=== PATIENT | female | born 1985 | race American Indian/Alaskan Native ===

== ENCOUNTER 2017-09-04 23:49 | Emergency (ER) | payer MEDICAID ==
[2017-09-05 00:48] VITALS: BP 145/74
[2017-09-05 01:28] LABS: Basophils % (Auto) 0.4 % (0.0-1.8); Eosinophils # (Auto) 0.5 K/mm3 (0.0-0.4); Eosinophils % (Auto) 3.9 % (0.0-4.3); Hematocrit 35.8 % (30.3-42.9); Hemoglobin 11.9 gm/dl (10.1-14.3); Lymphocytes # (Auto) 1.8 K/mm3 (1.2-5.4); Lymphocytes % (Auto) 13.2 % (13.4-35.0); Mean Corpuscular HGB Conc 33 % (30-34); Mean Corpuscular Hemoglobin 30 pg (28-32); Mean Corpuscular Volume 90 fl (79-97); Monocytes # (Auto) 1.1 K/mm3 (0.0-0.8); Monocytes % (Auto) 8.3 % (0.0-7.3); Platelet Count 232 K/mm3 (140-440); Red Blood Count 3.97 M/mm3 (3.65-5.03); Red Cell Distribution Width 14.9 % (13.2-15.2)
[2017-09-05 02:02] LABS: BUN/Creatinine Ratio 26; Blood Urea Nitrogen 18 mg/dL (7-17); Calcium 9.3 mg/dL (8.4-10.2); Hemolysis Index 21
--- NOTE | 2017-09-05 02:51 | Emergency Department Report ---
ED ENT HPI - General Chief complaint: Sore Throat Stated complaint: VOMITING,SORE THROAT Time Seen by Provider: 09/05/17 02:24 Source: patient Mode of arrival: Ambulatory Limitations: No Limitations - History of Present Illness Initial comments: 31-year-old female past medical history obesity presents with complaint of 3 days of persistent sore throat and bodyaches. No trismus or drooling on exam. No stridor patient speaking in full sentences. MD complaint: sore throat Onset/Timin -: days(s) Location: throat Severity: moderate Severity scale (0 -10): 6 Quality: aching Consistency: constant Worsens with: swallowing Associated Symptoms: sore throat - Related Data Home Medications Medication Instructions Recorded Confirmed Last Taken Cholecalciferol (Vitamin D3) 2,000 unit PO QDAY 07/03/13 07/03/13 06/24/13 08:00 [Vitamin D3 2,000 unit] Previous Rx's Medication Instructions Recorded Last Taken Type Hydrocodone Bit/Acetaminophen 1 each PO 6XD PRN #20 tablet 07/06/13 Unknown Rx [Vicodin 5/500] Acetaminophen/Codeine 1 tab PO Q6H PRN #20 tab 12/24/14 Unknown Rx [Acetaminophen-Codeine #3 TAB] Cyclobenzaprine [Flexeril 10mg] 10 mg PO TID PRN #30 tablet 12/24/14 Unknown Rx Ibuprofen [Motrin] 600 mg PO Q8H PRN #40 tablet 12/24/14 Unknown Rx Dextromethorphan/Benzocaine 1 each PO Q4H PRN #1 box 09/05/17 Unknown Rx [Cepacol Sorethroat-Cough Ngoc] Ibuprofen [Motrin] 800 mg PO Q8HR PRN #30 tablet 09/05/17 Unknown Rx Allergies Allergy/AdvReac Type Severity Reaction Status Date / Time No Known Allergies Allergy Unverified 07/03/13 09:08 ED Dental HPI - General Chief complaint: Sore Throat Stated complaint: VOMITING,SORE THROAT Time Seen by Provider: 09/05/17 02:24 Source: patient Mode of arrival: Ambulatory Limitations: No Limitations - History of Present Illness MD complaint: sore throat - Related Data Home Medications Medication Instructions Recorded Confirmed Last Taken Cholecalciferol (Vitamin D3) 2,000 unit PO QDAY 07/03/13 07/03/13 06/24/13 08:00 [Vitamin D3 2,000 unit] Previous Rx's Medication Instructions Recorded Last Taken Type Hydrocodone Bit/Acetaminophen 1 each PO 6XD PRN #20 tablet 07/06/13 Unknown Rx [Vicodin 5/500] Acetaminophen/Codeine 1 tab PO Q6H PRN #20 tab 12/24/14 Unknown Rx [Acetaminophen-Codeine #3 TAB] Cyclobenzaprine [Flexeril 10mg] 10 mg PO TID PRN #30 tablet 12/24/14 Unknown Rx Ibuprofen [Motrin] 600 mg PO Q8H PRN #40 tablet 12/24/14 Unknown Rx Dextromethorphan/Benzocaine 1 each PO Q4H PRN #1 box 09/05/17 Unknown Rx [Cepacol Sorethroat-Cough Ngoc] Ibuprofen [Motrin] 800 mg PO Q8HR PRN #30 tablet 09/05/17 Unknown Rx Allergies Allergy/AdvReac Type Severity Reaction Status Date / Time No Known Allergies Allergy Unverified 07/03/13 09:08 ED Review of Systems ROS: Stated complaint: VOMITING,SORE THROAT Other details as noted in HPI Constitutional: denies: chills, fever Eyes: denies: eye pain, eye discharge, vision change ENT: throat pain. denies: ear pain Respiratory: denies: cough, shortness of breath, wheezing Cardiovascular: denies: chest pain, palpitations Endocrine: no symptoms reported Gastrointestinal: denies: abdominal pain, nausea, diarrhea Genitourinary: denies: urgency, dysuria, discharge Musculoskeletal: denies: back pain, joint swelling, arthralgia Skin: denies: rash, lesions Neurological: denies: headache, weakness, paresthesias Psychiatric: denies: anxiety, depression Hematological/Lymphatic: denies: easy bleeding, easy bruising ED Past Medical Hx - Past Medical History Previous Medical History?: Yes Hx GERD: Yes (NO MEDICATION) Hx Asthma: Yes (childhood) Additional medical history: High Cholesterol - Social History Smoking Status: Never Smoker - Medications Home Medications: Home Medications Medication Instructions Recorded Confirmed Last Taken Type Cholecalciferol (Vitamin D3) 2,000 unit PO QDAY 07/03/13 07/03/13 06/24/13 08: 00 History [Vitamin D3 2,000 unit] Hydrocodone Bit/Acetaminophen 1 each PO 6XD PRN #20 tablet 07/06/13 Unknown Rx [Vicodin 5/500] Acetaminophen/Codeine 1 tab PO Q6H PRN #20 tab 12/24/14 Unknown Rx [Acetaminophen-Codeine #3 TAB] Cyclobenzaprine [Flexeril 10mg] 10 mg PO TID PRN #30 tablet 12/24/14 Unknown Rx Ibuprofen [Motrin] 600 mg PO Q8H PRN #40 tablet 12/24/14 Unknown Rx Dextromethorphan/Benzocaine 1 each PO Q4H PRN #1 box 09/05/17 Unknown Rx [Cepacol Sorethroat-Cough Ngoc] Ibuprofen [Motrin] 800 mg PO Q8HR PRN #30 tablet 09/05/17 Unknown Rx ED Physical Exam - General Limitations: No Limitations General appearance: alert, in no apparent distress - Head Head exam: Present: atraumatic, normocephalic - Eye Eye exam: Present: normal appearance, PERRL, EOMI - ENT ENT exam: Present: mucous membranes moist - Expanded ENT Exam Expanded Throat exam: Positive: tonsillar erythema, tonsillar exudate (bilateral tonsillar exudates and erythema. Uvula is midline no [employer] clinically) - Neck Neck exam: Present: normal inspection, full ROM, lymphadenopathy (anterior cervical tender adenopathy) - Respiratory Respiratory exam: Present: normal lung sounds bilaterally. Absent: respiratory distress - Cardiovascular Cardiovascular Exam: Present: regular rate, normal rhythm. Absent: systolic murmur, diastolic murmur, rubs, gallop - GI/Abdominal GI/Abdominal exam: Present: soft, normal bowel sounds - Extremities Exam Extremities exam: Present: normal inspection - Back Exam Back exam: Present: normal inspection - Neurological Exam Neurological exam: Present: alert, oriented X3 - Psychiatric Psychiatric exam: Present: normal affect, normal mood - Skin Skin exam: Present: warm, dry, intact, normal color. Absent: rash ED Course Vital Signs 09/05/17 00:32 Temperature 98.4 F Pulse Rate 90 Respiratory 20 Rate Blood Pressure 145/74 O2 Sat by Pulse 100 Oximetry ED Medical Decision Making - Lab Data Result diagrams: 09/05/17 01:12 09/05/17 01:12 - Medical Decision Making A/P: Pharyngitis 1-empiric treatment with Bicillin 2-Motrin 800 when necessary 3-throat lozenges prn Critical care attestation.: If time is entered above; I have spent that time in minutes in the direct care of this critically ill patient, excluding procedure time. ED Disposition Clinical Impression: Acute bacterial pharyngitis Disposition: TO HOME OR SELFCARE Is pt being admited?: No Does the pt Need Aspirin: No Condition: Stable Instructions: Pharyngitis (ED), Tonsillitis (ED) Prescriptions: Dextromethorphan/Benzocaine [Cepacol Sorethroat-Cough Ngoc] 1 each PO Q4H PRN #1 box PRN Reason: Sore Throat Ibuprofen [Motrin] 800 mg PO Q8HR PRN #30 tablet PRN Reason: Pain Referrals: [facility] [Outside] - 3-5 Days [facility] [Outside] - 3-5 Days Forms: Work/School Release Form(ED) Time of Disposition: 02:59
[2017-09-05] MEDS ORDERED: DECADRON IM ONE (02:56)
[2017-09-05] MEDS ORDERED: BICILLIN L-A IM ONE (02:56)
== END 2017-09-05 03:32 | disposition home or self-care (01) ==
LOC: ED 23:49
DX: J02.8 Acute pharyngitis due to other specified organisms (principal); B96.89 Other specified bacterial agents as the cause of diseases classified elsewhere; K21.9 Gastro-esophageal reflux disease without esophagitis; J45.909 Unspecified asthma, uncomplicated; E78.00 Pure hypercholesterolemia, unspecified
CPT/HCPCS: 36415; 80048; 85025; 87116; 87430; 96372; 99283; J0561; J1100